=== PATIENT | female | born 1950 ===

== ENCOUNTER 2020-03-02 07:53 | Outpatient (CLI) | payer OTHER ==
[~2020-03-02 07:53] MED LIST: AMBIEN5 MG PO; CLARITIN10 M1 PO; COZAAR50 MG PO; EVISTA60 MG PO; GABAPENTIN600 MG PO; SYNTHROID137 MCG PO
== END 2020-03-02 08:12 | disposition home or self-care (01) ==
LOC: SONOGRAMA 07:53
PROVIDERS: ATTEND Pathology Anatomic Pathology & Clinical Pathology
DX: C73 Malignant neoplasm of thyroid gland (principal)